=== PATIENT | male | born 1960 | race Caucasian/White ===

== ENCOUNTER 2017-12-14 10:00 | Inpatient (IN) ==
[2017-12-14 13:27] LABS: Appearance,Urine HAZY; Bilirubin,Urine NEG (NEG); Color,Urine YELLOW; Glucose,Urine (UA) NEGATIVE (NEG); Leukocyte Esterase,Urine NEG /uL (NEG); Protein,Urine NEG (NEG); Specific Gravity,Urine 1.018 (1.000-1.035); Urine Blood NEG mg/dL (<0.03); Urobilinogen,Urine NEG (NEG)
[2017-12-14 13:38] LABS: Basophils # (Auto) 0 K/mcL (0.0-0.3); Basophils % (Auto) 0.5 % (0.0-2.0); Eosinophils # (Auto) 0.2 K/mcL (0.0-0.7); Eosinophils % (Auto) 2.4 % (0.0-7.0); Granulocytes % (Auto) 72.2 % (38.0-78.0); Lymphocytes # (Auto) 1.7 K/mcL (1.5-4.8); Lymphocytes % (Auto) 17.1 % (15.5-49.0); Mean Cell Volume 90.4 fL (80.0-100.0); Mean Corpuscular HGB Conc 33.1 g/dL (31.0-36.0); Mean Corpuscular Hemoglobin 29.9 pg (26.0-34.0); Monocytes # (Auto) 0.8 K/mcL (0.1-0.9); Monocytes % (Auto) 7.8 % (1.0-12.0); Platelet Count 272 K/mcL (140-440); RBC 5.23 M/mcL (4.50-5.90); Red Cell Distribution Width 15.5 % (11.5-14.5)
[2017-12-14 13:43] LABS: Blood Urea Nitrogen 12 mg/dl (6-20)
[2017-12-21] MEDS ORDERED: CELECOXIB 200 MG CAPSULE PO SCH (06:00)
[2017-12-21] MEDS ORDERED: 0.9 % SODIUM CHLORIDE 9 ML, KETOROLAC 30 MG, ROPIVACAINE HCL/PF 49.5 ML, EPINEPHrine 0.... IJ SCH (06:00)
[2017-12-21] MEDS ORDERED: PREGABALIN 75 MG CAPSULE PO SCH (06:00)
[2017-12-21] MEDS ORDERED: ACETAMINOPHEN 500 MG TABLET PO SCH (06:00)
[2017-12-21] MEDS ORDERED: oxyCODONE 10 MG TAB.ER.12H PO SCH (06:00)
[2017-12-21] MEDS ORDERED: ceFAZolin 1 GM VIAL IV SCH (06:00)
[2017-12-21] MEDS ORDERED: SCOPOLAMINE 1 PATCH PATCH TOPICAL ONE (06:00)
[2017-12-21] MEDS ORDERED: ONDANSETRON 4 MG/2 ML VIAL IV ONE (14:20)
[2017-12-21] MEDS ORDERED: KETAMINE 100 MG/ML ML IV ONE (14:20)
[2017-12-21] MEDS ORDERED: ROPIVACAINE HCL/PF 20 ML VIAL IJ ONE (14:20)
[2017-12-21] MEDS ORDERED: MIDAZOLAM 2 MG/2 ML VIAL IV ONE (14:20)
[2017-12-21] MEDS ORDERED: LIDOCAINE HCL/PF 100 MG/5 ML SYRINGE IV ONE (14:20)
[2017-12-21] MEDS ORDERED: PROPOFOL 200 MG/20 ML VIAL IV ONE (14:20)
[2017-12-21] MEDS ORDERED: fentaNYL 100 MCG/2 ML VIAL IV ONE (14:20)
[2017-12-21] MEDS ORDERED: TRANEXAMIC ACID 1,000 MG/10 ML VIAL IV ONE (14:20)
[2017-12-21] MEDS ORDERED: GLYCOPYRROLATE 0.2 MG/ML VIAL IV ONE (14:20)
[2017-12-21] MEDS ORDERED: GENTAMICIN SULFATE 800 MG/20 ML VIAL IR ONE (15:04)
[2017-12-21] MEDS ORDERED: ONDANSETRON 4 MG/2 ML VIAL IV PRN ×2 (16:16→16:52)
[2017-12-21] MEDS ORDERED: PROMETHAZINE 25 MG/ML VIAL IV PRN (16:16)
[2017-12-21] MEDS ORDERED: IPRATROPIUM/ALBUTEROL 3 ML AMPUL.NEB NEB PRN (16:16)
[2017-12-21] MEDS ORDERED: fentaNYL 100 MCG/2 ML VIAL IV PRN (16:16)
[2017-12-21] MEDS ORDERED: NALOXONE HCL 0.4 MG/ML VIAL IV PRN (16:16)
[2017-12-21] MEDS ORDERED: FLUMAZENIL 0.1 MG/ML ML IV PRN (16:16)
[2017-12-21] MEDS ORDERED: diphenhydrAMINE 50 MG/ML VIAL IV PRN (16:16)
[2017-12-21] MEDS ORDERED: PROMETHAZINE 25 MG/ML VIAL IM PRN (16:16)
[2017-12-21] MEDS ORDERED: ePHEDrine 50 MG/ML AMPUL IV PRN (16:16)
[2017-12-21] MEDS ORDERED: ATROPINE SULFATE 0.4 MG/ML VIAL IV PRN (16:16)
[2017-12-21] MEDS ORDERED: METOPROLOL TARTRATE 5 MG/5 ML VIAL IV PRN (16:16)
[2017-12-21] MEDS ORDERED: MEPERIDINE 50 MG/ML INJECTION IM PRN (16:16)
[2017-12-21] MEDS ORDERED: HYDROmorphone 2 MG/ML VIAL IV PRN (16:16)
[2017-12-21] MEDS ORDERED: METHOCARBAMOL 1,000 MG/10 ML VIAL IV PRN (16:16)
[2017-12-21] MEDS ORDERED: MEPERIDINE 25 MG/ML SYRINGE IV PRN (16:16)
[2017-12-21] MEDS ORDERED: LACTATED RINGERS 1,000 ML IV SCH (16:30)
[2017-12-21] MEDS ORDERED: HYDROcodone/APAP 10/325MG TABLET PO PRN (16:52)
[2017-12-21] MEDS ORDERED: POLYETHYLENE GLYCOL 3350 17 GM PACKET PO PRN (16:52)
[2017-12-21] MEDS ORDERED: MAGNESIUM HYDROXIDE 30 ML ORAL.SUSP PO PRN (16:52)
[2017-12-21] MEDS ORDERED: BENZOCAINE/MENTHOL 1 LOZENGE PO PRN (16:52)
[2017-12-21] MEDS ORDERED: ACETAMINOPHEN 325 MG TABLET PO PRN (16:52)
[2017-12-21] MEDS ORDERED: BISACODYL 10 MG SUPP.RECT PR PRN (16:52)
[2017-12-21] MEDS ORDERED: TRANEXAMIC ACID 1,000 MG/10 ML VIAL IV SCH (16:52)
[2017-12-21] MEDS ORDERED: FLEETS ADULT ENEMA PR PRN (16:52)
--- NOTE | 2017-12-21 16:52 | Brief Operative Note ---
Date of procedure: 12/21/17 Pre-op diagnosis: left knee failed depuy base plate Post-op diagnosis: same Procedure: left tka revision both comp Grafts/Implants: Yes Anesthesia: GETA Findings: loose base plate with thickened capsule Complications: none Surgeon: Jacob Elaine Estimated blood loss (cc): 100 Tourniquet Time (Minutes): 101 Specimens Removed/Pathology: none sent Condition: stable Disposition: PACU
[2017-12-21] MEDS ORDERED: BACLOFEN 10 MG TABLET PO PRN (16:56)
--- NOTE | 2017-12-21 17:53 | XRay Report ---
HISTORY: Postop knee replacement FINDINGS: There is a well-positioned left total knee prosthesis. No fracture is present. The prosthesis has been revised since the time of the prior exam done on 07/18/14. It now has long rods which extend into the shaft of the femur and tibia. Small cluster of soft tissue calcifications are seen anterior to the distal shaft of the femur. These may be above the level of the suprapatellar bursa. IMPRESSION: Well-positioned left knee prosthesis Interpreted and Authenticated by: Kennedy Bustamante 12/21/17
[2017-12-21] MEDS: KETOROLAC 15 MG/ML VIAL IV SCH ×2 (17:54→23:11)
[2017-12-21] MEDS: 0.45 % SODIUM CHLORIDE 1,000 ML IV SCH (17:54)
[2017-12-21] MEDS: oxyCODONE HCL 5 MG TABLET PO PRN ×2 (18:51→23:10)
[2017-12-21] MEDS: DOCUSATE SODIUM 100 MG CAPSULE PO SCH (20:24)
[2017-12-21] MEDS: HYDROmorphone 2 MG/ML VIAL IV PRN ×2 (20:25→21:40)
[2017-12-21] MEDS: ASPIRIN 325 MG ENTERIC COATED TABLET PO SCH (20:25)
[2017-12-21] MEDS ORDERED: TEMAZEPAM 15 MG CAPSULE PO PRN (21:00)
[2017-12-21] MEDS ORDERED: ATORVASTATIN 20 MG TABLET PO SCH (21:00)
[2017-12-21] MEDS ORDERED: rOPINIRole 0.25 MG TABLET PO SCH (21:00)
[2017-12-21] MEDS ORDERED: SENNOSIDES 1 TABLET PO SCH (21:00)
[2017-12-21] MEDS: ceFAZolin 1 GM VIAL IV SCH (23:12)
[2017-12-21] MEDS: 0.9 % SODIUM CHLORIDE 10 ML SYRINGE IV SCH (23:20)
[2017-12-22] MEDS: oxyCODONE HCL 5 MG TABLET PO PRN ×2 (02:51→07:33)
[2017-12-22] MEDS: 0.45 % SODIUM CHLORIDE 1,000 ML IV SCH (04:40)
[2017-12-22] MEDS: KETOROLAC 15 MG/ML VIAL IV SCH (04:59)
[2017-12-22] MEDS: HYDROmorphone 2 MG/ML VIAL IV PRN (04:59)
[2017-12-22] MEDS: ceFAZolin 1 GM VIAL IV SCH (05:00)
[2017-12-22] MEDS: 0.9 % SODIUM CHLORIDE 10 ML SYRINGE IV SCH (05:00)
--- NOTE | 2017-12-22 07:35 | Operative Note ---
DATE OF OPERATION: 12/21/2017 PREOPERATIVE DIAGNOSES: Left knee failed DePuy baseplate. POSTOPERATIVE DIAGNOSIS: Left knee failed DePuy baseplate. PROCEDURE: Left total knee revision of a DePuy total knee arthroplasty using revision stems and components from [employer]. SURGEON: Jacob Elaine MD TENNIS B[employer]ER HAND: Artur Adames PA-C. ANESTHESIA: General LMA anesthesia. COMPLICATIONS: None. TOTAL TOURNIQUET TIME: 101 minutes. ESTIMATED BLOOD LOSS: About 100 to 150 mL BLOOD PRODUCTS GIVEN: None. IMPLANTS: Sizes size 7 tibial baseplate, 150 mm stem with 2 mm of eccentricity or offset as well as on the femoral 2 mm of lateralization with a 17 mm stem, 175 mm long. DESCRIPTION OF PROCEDURE: The patient was brought to the operating room and put to sleep with general LMA anesthesia. Once asleep, the patient had the left leg sterilely prepped and draped in the usual sterile fashion. A timeout was performed to confirm the operative site by initials, consent form and x-rays. Once done, we then made a midline incision through his prior scar. Preop antibiotics and tranexamic acid had been given. Through this we evaluated the knee-very thick, firm knee. He lacked about 10 to 15 degrees of extension. He was only able to bend to about 90 degrees because of adhesions and tightness. Once we entered the joint there was quite a bit of fluid but clear. We then sent tissue samples x3, both in the superior pouch and in the fat pad that were excised. The capsule itself was very thickened throughout with large adhesions in both gutters. Medial and lateral gutters were recreated. We performed a complete synovectomy of the capsule. We irrigated thoroughly and then subluxed the knee laterally. Once done, I then removed the femoral component and poly liner. The baseplate was tapped twice and it completely debonded or was already unbonded. The cement itself was completely intact to the bone. This was broken apart and removed. Using a central 17 reamer we set this and cut 2-3 mm off of the tibia to freshen the cut. We then used 2 mm of offset at 3 o'clock position. Once tapped into place we then prepared the femur. The femur was then prepared and reamed up to the size 17 stem. We placed the cutting guide, a 10 mm wedge medially and 15 mm wedge laterally after the older components have been removed. With these augments, using the epicondyle axis as our alignment setting rotation with the prior component this seemed to track very well with 2 mm of offset laterally. This seemed very stable. I irrigated thoroughly and then cemented into place the above-mentioned sizes with 150 mm stem on the tibial side, 175 mm on the femoral side and a 13 mm poly was used. We kept the knee at 45 degrees until completely dry. We then closed the mid vastus approach with #1 Stratafix after deflating the tourniquet for 101 minutes. Two #1 Stratafix were used. Skin was closed with 2-0 Vicryl and 3-0 Monocryl. Sterile bandage applied. The patient tolerated this well without complication. RBH:karri Job ID: [id number] Doc ID: [id number] Jacob Elaine MD
--- NOTE | 2017-12-22 08:07 | Discharge Summary ---
Ortho Discharge - TKA - Patient Instructions Diet: Regular Diet Activity: activity as tolerated, weight bearing as tolerated Total Knee Protocol: For Total Knee: Start ROM NAHID with stationary bike or rocking chair. Work on gaining full extension of knee. Posterior dislocation precautions provided. Hip abductor strengthening and gait training instructions provided. Apply Cryocuff as instructed. Dressing Care: Aquacel Ag - leave on for 5 days Patient Education: Revision Total Joint Arthroplasty (DC) Additional Instructions: CPM for home use - Follow Up Plan Follow Up Appointments: Pedro Villa PA-C [[facility]] - 01/07/18 10:40 am Disposition: Hospice - Home Prognosis: Good Rehab Potential: Good I certify that the patient requires SNF services: No Overall status at discharge: patient is progressing back to baseline - Orders For Discharge Prescriptions: oxyCODONE HCL [Roxicodone] 15 mg PO Q4HP PRN #60 tab PRN Reason: Pain Additional Discharge Orders: Physical Therapy at Discharge - TKA Location: None Selected CPM Discharge Order Location: None Selected Toilet Riser Discharge Order Location: None Selected Walker Location: None Selected
[2017-12-22] MEDS ORDERED: TAMSULOSIN 0.4 MG CAPSULE PO SCH ×2 (08:15→21:00)
[2017-12-22] MEDS ORDERED: amLODIPine 5 MG TABLET PO SCH (09:00)
[2017-12-22] MEDS ORDERED: LISINOPRIL 10 MG TABLET PO SCH (09:00)
[2017-12-22] MEDS ORDERED: NON FORMULARY MEDICATION 1 DOSE MISCELL (Turmeric Root Extract [Turmeric] 500 MG) PO SCH (09:00)
[2017-12-22] MEDS ORDERED: FISH OIL 1,000 MG CAPSULE PO SCH (09:00)
[2017-12-22] MEDS ORDERED: ASPIRIN 81 MG TAB.CHEW PO SCH (09:00)
[2017-12-22] MEDS ORDERED: VITAMIN D3 1,000 UNIT TABLET PO SCH (09:00)
[2017-12-22] MEDS ORDERED: MULTIVIT,THER IRON,CA,FA & MIN 1 TABLET PO SCH (09:00)
[2017-12-22] MEDS: DOCUSATE SODIUM 100 MG CAPSULE PO SCH (10:12)
[2017-12-22] MEDS: ASPIRIN 325 MG ENTERIC COATED TABLET PO SCH (10:12)
--- NOTE | 2017-12-22 12:02 | Surgical Pathology Report ---
HISTOLOGY SPECIMEN MICROSCOPIC DIAGNOSIS SOFT TISSUE, LEFT KNEE, ANTERIOR FAT PAD SUPRA POUCH, EXCISION: -- FIBROTIC SOFT TISSUE AND SYNOVIUM WITH MILD CHRONIC INFLAMMATION. -- NO SIGNIFICANT ACUTE/NEUTROPHILIC INFLAMMATION IDENTIFIED (LESS THAN ONE NEUTROPHIL/hpf). (DMT:sln) INTRAOPERATIVE CONSULTATION FROZEN SECTION DIAGNOSIS (Performed at [facility], [place]) FSA1, FSA2 - SOFT TISSUE, LEFT KNEE, ANTERIOR FAT PAD SUPRA POUCH, EXCISION: -- LESS THAN ONE NEUTROPHIL/hpf. (DMT:sln) PROCEDURAL IMPRESSION Left knee revision. GROSS DESCRIPTION Received fresh for intraoperative consultation labeled anterior fat pad supra pouch, further designated as left knee, is a 4.5 x 2.2 x 1.9 cm aggregate of lópez-yellow fibrous and adipose tissue. The tissue is submitted for frozen section consultation and resubmitted as FSA1 and FSA2. (DMT:sln) Electronically Signed by: Gilbert Irby M.D.
== END 2017-12-22 11:55 | disposition home or self-care (01) | DRG 468 ==
LOC: MEDSUR 12-21 10:55
PROVIDERS: ADMIT Orthopaedic Surgery; ATTEND Orthopaedic Surgery